=== PATIENT | female | born 1995 | race Caucasian/White ===

== ENCOUNTER 2016-06-27 02:48 | Emergency (ER) | payer BC ==
[~2016-06-27] VITALS: Ht 170.2 cm; Wt 88.6 kg
[~2016-06-27 02:48] MED LIST: AKWA TEARS 15 M15 ML OP; AMOXICILLIN 50500 MG PO; AMOXICILLIN/CLA1 TA1 PO; CLEOCIN HCL300 MG PO; NORCO 325 MG-51 TAB PO; SAFYRAL1 TAB PO; TUSS PO; ULTRAM 50MG TAB50 MG PO; ZITHROMAX Z PA250 MG PO; ZYRTEC 10MG10 MG PO
[2016-06-27 02:50] VITALS: TEMP 99.5
[2016-06-27 03:33] LABS: INFLUENZA B NEGATIVE
[2016-06-27 03:33] LABS: BASO % 0.3 % (0.0-2.0); EOS # 0.1 (0.0-0.7); EOS % 0.4 % (0-4.0); GRAN % 84.3 % (42.2-75.2); HEMATOCRIT 42.8 % (37.0-47.0); HEMOGLOBIN 15.1 g/dl (12.5-16.0); LYMPH # 0.8 (1.2-3.4); LYMPH % 6.6 % (20.0-51.0); MEAN CELL VOLUME 92 fl (80.0-100.0); MEAN CORPUSCULAR HEMOGLOBIN 32 pg (27.0-31.0); MEAN CORPUSCULAR HGB CONC 35 g/dl (33.0-37.0); MEAN PLATELET VOLUME 11.1 fl (7.4-10.4); MONO % 8.1 % (1.7-9.3); PLATELET COUNT 226 K/mm3 (130-400); RED BLOOD COUNT 4.66 M/mm3 (4.10-5.30); REDCELL DISTRIBUTION WIDTH-CV 11.9 % (11.5-14.5); WHITE BLOOD COUNT 11.9 K/mm3 (4.8-10.8)
[2016-06-27 03:42] LABS: ADJUSTED CALCIUM 9.1 mg/dL (8.4-10.2); ALANINE AMINOTRANSFERASE 41 U/L (9-52); ALBUMIN 4.7 gm/dL (3.5-5.0); ALKALINE PHOSPHATASE 64 U/L (50-136); ANION GAP 13 mmol/L (7-16); BLOOD UREA NITROGEN 11 mg/dL (7-17); CALCIUM 9.7 mg/dL (8.4-10.2); CARBON DIOXIDE 28 mmol/L (22-30); CHLORIDE 100 mmol/L (98-107); CREATININE, serum 0.87 mg/dL (0.52-1.25); GLUCOSE 101 mg/dL (74-106); LIPASE 31 U/L (23-300); POTASSIUM 3.7 mmol/L (3.4-5.0); SODIUM 140 mmol/L (137-145); TOTAL PROTEIN 7.7 gm/dL (6.4-8.2)
[2016-06-27 03:55] LABS: TROPONIN-I < 0.012 ng/mL (0.000-0.034)
[2016-06-27] MEDS ORDERED: DOXYCYCLINE 10100 MG PO (05:15)
[2016-06-27 05:40] VITALS: BP 127/71; PULSE 88
== END 2016-06-27 05:40 | disposition home or self-care (01) ==
LOC: COL.ER 02:48
PROVIDERS: Emergency Medicine
DX: R07.9 Chest pain, unspecified (principal)
CPT/HCPCS: J1885; J7030